=== PATIENT | female | born 1955 | race Caucasian/White ===

== ENCOUNTER 2019-08-27 12:21 | Emergency (ER) | payer SELFPAY ==
[2019-08-27 12:28] VITALS: BMI 23.3
[2019-08-27 12:33] VITALS: BP 137/94; PULSE 107; RESP 20; TEMP 36.8; O2SAT 95
[2019-08-27] MEDS: predniSONE 20 mg Tablet 60 MG PO (12:38)
[2019-08-27] MEDS: diphenhydrAMINE 50 mg Capsule PO (12:39)
--- NOTE | 2019-08-27 12:41 | ED_ITS ---
HPI - Skin/Abscess/Foreign Bdy General: Chief complaint: Skin/Abscess/Foreign Body Stated complaint: spider bite Time Seen by Provider: 08/27/19 12:27 History of Present Illness: HPI narrative: This patient is a 64-year-old female who presents today with a rash. She was bitten by something on her right arm yesterday while sitting on her couch in her home. She believes it was a spider but she did not see what ever it was that bit her. Since then she has d eveloped a diffuse, erythematous rash on her arms and legs. She feels intermittently short of breath. She does have a history of COPD and is a heavy smoker. She does not have a primary care provider, takes no prescription medications. Her daughter gave her 2 Benadryl early this morning and she felt it helped a little bit. She is complaining of severe itching. MD complaint: insect bite/sting Onset (ago): hour(s) (18) Tetanus up to date: unsure Location: generalized Quality: pruritic Associated symptoms: Reports itching and short of breath; Deny chills, fever(s), nausea or vomiting Review of Systems General: Reports: 10 or more systems reviewed and unremarkable except in HPI and below Const: Denies: fever(s), chills, fatigue or malaise Eyes: Denies: change in vision ENMT: Denies: odynophagia Card: Denies: chest pain or swelling of feet/ankles Resp: Denies: productive cough or non-productive cough GI: Denies: abdominal pain, nausea or vomiting : Denies: flank pain or difficulty voiding Musc: Denies: neck pain or back pain Neuro: Denies: headache(s), numbness in extremities or weakness in extremities Lyle/Lymph: Denies: easy bruising or easy bleeding PFSH ED PFSH: Social History Smoking and tobacco status: current every day smoker Physical Exam Const: COMMON NORMALS: no acute distress, patient oriented x3, no limitations and alert GENERAL APPEARANCE: cooperative and comfortable HENMT: HEAD & SCALP: normal to inspection FACE & SINUS: normal facial exam Eye: GENERAL EYE: appearance normal, both eyes and all related structures Neck/C-Spine: COMMON NORMALS: supple, no meningeal signs and no JVD Chest: COMMONS NORMALS: normal inspection of the chest Resp: COMMON NORMALS: normal respiratory effort and No use of accessory muscles EFFORT & INSPECTION: Yes tachypneic and Yes audible wheezes Cardio: COMMON NORMALS: no JVD, regular rate, regular rhythm and No murmurs present (Cardio) RATE: regular rate RHYTHM: regular rhythm GI: COMMON NORMALS: Normal to inspection, nondistended, normoactive bowel sounds present, Soft to palpation and non-tender INSPECTION: Yes normal to inspection AUSCULTATION: Yes normoactive bowel sounds PALPATION: Yes Soft to palpation Back/Pelvis: COMMON NORMALS: thoracic and lumbar spine normal to inspection Extremity: COMMON NORMALS: normal to inspection Neuro: COMMON NORMALS: patient oriented x3, moves all extremities, no focal motor deficits and no sensory deficits noted SENSORIUM/ORIENTATION: Yes alert MENINGEAL SIGNS: Yes no meningeal signs Psych: COMMON NORMALS: mental status grossly normal, cooperative and normal affect Skin: COMMON NORMALS: turgor normal NARRATIVE SKIN EXAM: Diffuse and splotchy redness over the arms and legs mainly. SKIN IMAGES (FEMALE): 1. Erythema and induration with a central lesion that could be a insect bite GENERAL SKIN EXAM: turgor normal Course ED course: Patient improved after treatment. Her breathing was back to normal. I will send her home with prednisone, Benadryl, famotidine. She was also referred to primary care and encouraged to follow-up. Vital Signs: Vital signs: Vital Signs Temperature 98.3 F 08/27/19 12:33 Pulse Rate 93 08/27/19 13:51 Respiratory Rate 18 08/27/19 13:51 Blood Pressure 143/95 08/27/19 13:51 Pulse Oximetry 96 08/27/19 13:51 Discharge Plan Discharge Patient Disposition: Home, Self-Care Clinical Impression: Allergic reaction to insect bite Condition: Stable Prescriptions: New prednisone 20 mg tablet 40 mg PO DAILY Qty: 10 RF: 0 Benadryl 25 mg capsule 50 mg PO Q8H PRN (Reason: allergy symptoms) Qty: 20 RF: 0 famotidine 40 mg tablet 40 mg PO DAILY Qty: 7 RF: 0 Discharge Orders: Discharge Order (Routine); Ordered 08/27/19 Ordered By: Belinda Montero Discharge Diet: Advance as tolerated Discharge Activity: Resume usual activity Patient Instructions: Allergic Reaction Activity Restrictions/Additional Instructions: Take the prednisone, Benadryl, famotidine as directed for 3 to 4 days. If symptoms are gone after that you may stop them. Establish care with a primary care provider for your future healthcare needs. Discharge Date/Time: 08/27/19 13:51 Coding Level of Care Code ED Shield Operator for Claudine Fwaparna Exam Comprehensive
[2019-08-27 13:25] VITALS: RESP 18
[2019-08-27 13:51] VITALS: BP 143/95; PULSE 93; RESP 18; O2SAT 96
--- NOTE | 2019-08-28 14:11 | DCPLANNER ---
Addendum entered by Stella Rodriguez 11/28/19 08:17: Patients appointment was rescheduled to a later date. Original Note: data warehousing manager was asked to speak with patient about getting established with a primary care physician. data warehousing manager spoke with patient, she stated that she did need to get established with a provider. data warehousing manager called the office of Dr. Cuellar, spoke with Kanika, follow up appointment is scheduled for September 26, 11:[address] Cuellar. data warehousing manager will mail patient both of the financial sales advisor applications to the patient to fill out and turn back in. data warehousing manager also mailed patient the appointment information.
== END 2019-08-27 13:51 | disposition home or self-care (01) ==
PROVIDERS: Emergency Provider Emergency Medicine
DX: T63.481A Toxic effect of venom of other arthropod, accidental (unintentional), initial encounter (principal); F17.210 Nicotine dependence, cigarettes, uncomplicated
CPT/HCPCS: 12345; 99281; 99283; J3535; J7512; Q0163

== ENCOUNTER 2020-10-03 20:21 | Emergency (ER) | payer MEDICARE, SELFPAY ==
[2020-10-03 20:47] VITALS: BP 211/126; PULSE 114; RESP 22; TEMP 35.9; O2SAT 96; BMI 24.1
--- NOTE | 2020-10-03 21:27 | ED_ITS ---
HPI - Back Pain/Injury General: Chief Complaint: Back Pain/Injury Stated Complaint: back pain Time Seen by Provider: 10/03/20 21:25 [facility] PFSH: Social History Smoking and tobacco status: current every day smoker Course Vital Signs: Vital signs: Vital Signs Temperature 96.6 F L 10/03/20 20:47 Pulse Rate 114 H 10/03/20 20:47 Respiratory Rate 22 H 10/03/20 20:47 Blood Pressure 211/126 10/03/20 20:47 Pulse Oximetry 96 10/03/20 20:47 Discharge Plan Discharge Prescriptions: No Action prednisone 20 mg tablet 40 mg PO DAILY Qty: 10 RF: 0 Benadryl 25 mg capsule 50 mg PO Q8H PRN (Reason: allergy symptoms) Qty: 20 RF: 0 famotidine 40 mg tablet 40 mg PO DAILY Qty: 7 RF: 0 Coding Level of Care Code ED General Practice for Claudine Cantu
--- NOTE | 2020-10-03 22:05 | W.ED.BACK ---
HPI - Back Pain/Injury General: Chief Complaint: Back Pain/Injury Stated Complaint: back pain Time Seen by Provider: 10/03/20 21:25 History of Present Illness: HPI Narrative: 65-year-old female comes in today with low back pain. Patient reports she had bent down to lift something up to help get her beagle assistance when it was barking. Patient reports she was in a prolonged position and aggravated her chronic back pain. Patient does have a history of vertebral fractures about 9 years ago when she fell lifting a heavy object. Patient denies any bowel or bladder problems. Patient denies any fever. Patient appears well. Patient appears in mild to moderate pain. Review of Systems General: Reports: 10 or more systems reviewed and unremarkable except in HPI and below Musc: Reports: back pain PFSH ED PFSH: Social History Smoking and tobacco status: current every day smoker Physical Exam Const: COMMON NORMALS: no acute distress and patient oriented x3 GENERAL APPEARANCE: cooperative HENMT: COMMON NORMALS: normocephalic and Normal external nose present HEAD & SCALP: normal to inspection and normocephalic NOSE: Normal external nose present MOUTH: Normal oral and palatal mucosa present Eye: GENERAL EYE: appearance normal, both eyes and all related structures Neck/C-Spine: COMMON NORMALS: full ROM Chest: COMMONS NORMALS: normal inspection of the chest Resp: COMMON NORMALS: normal respiratory effort EFFORT & INSPECTION: Yes able to speak in complete sentences Cardio: COMMON NORMALS: regular rate and regular rhythm RATE: regular rate RHYTHM: regular rhythm GI: COMMON NORMALS: non-tender : COMMON NORMALS: Yes no CVA tenderness BLADDER/KIDNEY EXAM: Yes no CVA tenderness Back/Pelvis: COMMON NORMALS: no CVA tenderness THORACIC SPINE/UPPER BACK: Yes paraspinal muscle spasm Extremity: COMMON NORMALS: normal to inspection Neuro: COMMON NORMALS: patient oriented x3 and moves all extremities Psych: COMMON NORMALS: mental status grossly normal and cooperative Skin: COMMON NORMALS: no rashes or lesions noted GENERAL SKIN EXAM: no rashes or lesions noted Course Vital Signs: Vital signs: Vital Signs Temperature 96.6 F L 10/03/20 20:47 Pulse Rate 114 H 10/03/20 20:47 Respiratory Rate 22 H 10/03/20 20:47 Blood Pressure 211/126 10/03/20 20:47 Pulse Oximetry 96 10/03/20 20:47 MDM - Back Pain/Injury MDM Narrative: Medical decision making narrative: 65-year-old female comes in today with exacerbation of chronic back pain. On exam patient has tenderness in the thoracic region of her mid back. Patient is able to maneuver with minimal difficulty. Respirations are even lungs are diminished in the bases. Vital signs are significant for elevated blood pressure 211/126. Differential diagnosis includes muscle strain, acute on chronic back pain, intervertebral disc disease, facet arthropathy. Patient denies any falls or recent injuries. Reviewed exam with patient with recommendations for treatment for pain and follow-up with primary care as needed. Patient reported understanding and agreed to plan. Discharge Plan Discharge Patient Disposition: Home Clinical Impression: Strain of lumbar region Qualifiers: Encounter type: initial encounter Qualified Code(s): S39.012A - Strain of muscle, fascia and tendon of lower back, initial encounter Condition: Stable Prescriptions: New naproxen 500 mg tablet 500 mg PO BID Qty: 20 RF: 0 hydrocodone-acetaminophen 5-325 mg tablet 1 tab PO Q8H PRN (Reason: pain (scale score 7-10)) Qty: 7 RF: 0 No Action prednisone 20 mg tablet 40 mg PO DAILY Qty: 10 RF: 0 Benadryl 25 mg capsule 50 mg PO Q8H PRN (Reason: allergy symptoms) Qty: 20 RF: 0 famotidine 40 mg tablet 40 mg PO DAILY Qty: 7 RF: 0 Discharge Orders: Discharge ED (Routine); Ordered 10/03/20 Ordered By: Curtis Serrano Referrals: Kady Cuellar DO [Primary Care Provider] - Discharge Diet: Usual diet Discharge Activity: Increase activity as tolerated Patient Instructions: Back Pain (ED), Opioid Safety Activity Restrictions/Additional Instructions: Back pain as tolerated. Use Tylenol for further pain relief and control. Take naproxen twice a day routinely for pain and inflammation. Use hydrocodone for breakthrough pain. Drink plenty of water with medication. Follow-up with primary care for further instruction. Coding Level of Care Code ED Development Mechanic for Claudine Cantu
[2020-10-03] MEDS: ketorolac 30 mg/mL INJ IM (22:35)
[2020-10-03] MEDS: HYDROcodone-acetaminophen 5-325 mg Tablet 1 TAB PO (22:35)
== END 2020-10-03 22:53 | disposition home or self-care (01) ==
PROVIDERS: Emergency Provider Nurse Practitioner Family
DX: S39.012A Strain of muscle, fascia and tendon of lower back, initial encounter (principal); F17.210 Nicotine dependence, cigarettes, uncomplicated; X50.1XXA Overexertion from prolonged static or awkward postures, initial encounter
CPT/HCPCS: 96372; 99283; J1885

== ENCOUNTER 2025-01-30 15:35 | Emergency (ER) | payer MEDICARE, SELFPAY ==
[2025-01-30] VITALS (15 sets, daily range): BP systolic 135–206; BP diastolic 80–153; PULSE 83–110; RESP 15–20; TEMP 37.1; O2SAT 87–96; BMI 25.0
--- NOTE | 2025-01-30 15:39 | ECG_ITS ---
[facility]: 2025-[facility]30 Pat Name: Nirmala Castillo Department: Room: Gender: Female Team Manager: : 1955 Requested By: Gray Zuniga Order Number: [id number] Leonidas MD: Gnozalo Warren M.D. Measurements Intervals [place] Rate: 108 P: 51 PA: 163 QRS: -5 QRSD: 82 T: 44 QT: 324 QTc: 435 Interpretive Statements SINUS TACHYCARDIA POSSIBLE LEFT ATRIAL ENLARGEMENT [-0.1mV P-WAVE IN V1/V2] SEPTAL MYOCARDIAL INFARCTION , OF INDETERMINATE AGE [40+ ms Q WAVE IN V1/V2] No previous ECG available for comparison Electronically Signed On 01-30-2025 18:56:16 CEILING INSULATION BLOWER by Gonzalo Warren M.D. [email or web address] [id number]
--- NOTE | 2025-01-30 15:45 | XR_ITS ---
WS: [id number] Exam: XR chest 1V portable [id number] Date/Time of Exam: 01/30/2025 3:45 PM Reason For Exam: chest pain Comparison 02/23/2018. The lungs are fully expanded and clear. Plaque atelectasis in the LEFT lower lobe. Cardiomediastinal structures are unremarkable. Bony structures are intact. XR/XR chest 1V portable [id number] IMPRESSION: 1. Plaque atelectasis in the LEFT lower lobe. No acute cardiopulmonary finding.
[2025-01-30 16:22] LABS: Hematocrit 45.2 % (36-47); Hemoglobin 14.30 g/dL (11.27-16.99); Mean Corpuscular HGB Conc 31.6 g/dL (30-55); Mean Corpuscular Hemoglobin 25.1 pg (27-33); Mean Corpuscular Volume 79.4 fl (85-98); Nucleated Red Blood Cells % 0 %; Platelet Count 334 10^3/cmm (157-399); Red Blood Count 5.69 10^6/uL (3.85-5.65); White Blood Count 12.71 10^3/uL (3.29-11.43)
[2025-01-30 16:45] LABS: Troponin(5th) Baseline 14 ng/L (0-10)
[2025-01-30 16:47] LABS: Alanine Aminotransferase 10 U/L (0-33); Albumin Level 4.3 g/dL (3.5-5.2); Alkaline Phosphatase 99 U/L (35-105); Anion Gap 15.6 (5-19); Aspartate Amino Transferase 10 U/L (0-32); Blood Urea Nitrogen 23 mg/dL (8-23); Calcium 9.3 mg/dL (8.5-10.5); Carbon Dioxide 27 mmol/L (22-29); Chloride 104 mmol/L (98-107); Globulin 2.3 g/dL (1.3-4.6); Glucose 87 mg/dL (65-115); Osmolality Calculated 297 mOsm/kg (285-295); Potassium 4.6 mmol/L (3.5-5.1); Sodium 142 mmol/L (136-145); Total Protein 6.6 g/dL (6.6-8.7)
--- OUTSIDE RECORDS SUMMARY | 2025-01-30 17:07 | XMS_ITS | Clinical Summary ---
Author Organization [facility] Address [address] [place] [address] Phone Care Team Providers Care Concrete Worker Name Role Phone Unavailable Primary Care Provider Unavailabl e Social History Tobacco Use Types Packs/Day Years Used Date Smoking Tobacco: Never Assessed Comments Unknown Sex and Gender Information Value Date Recorded Sex Assigned at Not on file Legal Sex Female 10:22 PM CDT Gender Identity Not on file Sexual Orientation Not on file Plan of Treatment Health Maintenance Due Date Last Done Comments DTAP/TDAP/TD VACCINES (1 - Tdap) 08/02/1974 BREAST CANCER SCREENING 1995 COLORECTAL SCREENING 08/02/2000 Colorectal Cancer Screening 08/02/2000 FIT-DNA Q 3 years 08/02/2000 FIT/FOBT Q 1 year 08/02/2000 Flex Sig/CT Colonography Q 5 years 08/02/2000 PNEUMOCOCCAL VACCINE 50+ YEARS (1 of 1 - PCV) 08/03/19 06 ZOSTER VACCINE (1 of 2) 08/02/2005 OSTEOPOROSIS SCREENING 08/02/2020 INFLUENZA VACCINE (#1) 2024 RSV VACCINE (60+ or ) (1 - 1-dose 75+ series) 08/02/2030
--- OUTSIDE RECORDS SUMMARY | 2025-01-30 17:07 | XMS_ITS | Data Portability ---
Author Organization [facility]ian [facility] Address [address] [address] Care Team Providers Care Medical Accountant Name Role Phone CHE LOBATO Primary Care Provider Unavailabl e Assessment No assessment recorded. Plan of Treatment Reminders Order Date Submit Date Provider Last Modified By Organization Details Last Modified Time Details Appointments None recorded. Lab CMP, serum or plasma 2024 025 [facility], [address], [address], 5 17:24:46 CBC w/ auto diff 2024 025 anahi [facility], [address], [address], 5 13:59:15 vitamin D, 25-hydrox y, total, serum 2024 025 [employer] [facility], [address] [facility] [address] [place], [address], 5 08:49:06 Referral orthopedi c spine surgeon referral 2024 025 stjerome Vazquez DO, [address] [place], [address], 5 10:00:20 Procedures None recorded. Surgeries None recorded. Imaging MRI, lumbar spine, w/o contrast 2024 025 [email or web address] [facility] Imaging Orders, [address] [facility], [place], [address], 5 10:25:37 XR, lumbosacr al spine, 2 or 3 view 2023 024 [facility] ([facility]), [address] [facility], [place], [address], 4 12:44:23 Medication Orders betametha sone acetate and sodium phos 6 mg/mL suspensio n for injection 2024 025 [email or web address] Not available 18:38:57 levetirac etam 500 mg tablet 2024 025 [facility] 15, [address], [place], [address], 17:59:51 lisinopri l 20 mg tablet 2024 025 [facility] 15, [address], [place], [address], 5 17:59:53 alendrona te 70 mg tablet 2024 025 [facility] 15, [address], [place], [address], 5 15:32:26 Cymbalta 30 mg capsule,d elayed release 2024 025 [facility] 15, [address], [place], [address], 5 15:32:28 Cymbalta 60 mg capsule,d elayed release 2024 025 [facility] 15, [address], [place], [address], 15:32:29 tramadol 50 mg tablet 2024 025 [facility] 15, [address], [place], [address], 15:32:35 tramadol 50 mg tablet 2023 024 [facility] 15, [address], [place], [address], 14:01:47 Patient TargetsNo targets recorded. Patient InstructionsNo instructions recorded. Reason for Referral Orthopedic Spine Surgeon Ref erral for Compression fracture of lumbar spine Referring Physician: Che Lobato, Family Medicine, Encounter Date: 05/09/2024 Results Created Date Observation Date Name Description Value Unit Range Abnormal Flag Note LastModifiedBy Organization Detail LastModifiedTime 05/10/1905/09/2024 CBC WBC 16.0 x10 4.0-10 .5 high Not Available [facility] [address] [facility] [address], [place], [address], 05/09/2024 16:22:59 05/10/19 25 05/09/2024 CBC RBC 5.16 x10 3.50-5 .50 Not Available [facility] [address] [facility] [address], [place], [address], 05/09/2024 16:22:59 05/10/19 25 05/09/2024 CBC HGB 14.1 g/dL 12.0-1 6.0 Not Available [facility] [address] [facility] [address], [place], [address], 05/09/2024 16:22:59 05/10/19 25 05/09/2024 CBC HCT 40.5 % 37.0-4 7.0 Not Available [facility] [address] [facility] [address], [place], [address], 05/09/2024 16:22:59 05/10/19 25 05/09/2024 CBC MCV 78.4 fL 80.0-9 9.9 low Not Available [facility] [address] [facility], [place], [address], 05/09/2024 16:22:59 05/10/19 25 05/09/2024 CBC MCH 27.3 pg 27.0-3 2.0 Not Available [facility] [address] [facility], [place], [address], 05/09/2024 16:22:59 05/10/19 25 05/09/2024 CBC MCHC 34.8 g/dL 32.0-3 6.0 Not Available [facility] [address] [address], [place], [address], 05/09/2024 16:22:59 05/10/19 25 05/09/2024 CBC RDW 17.2 % 11.5-1 4.5 high Not Available [facility] [address] [facility], [place], [address], 05/09/2024 16:22:59 05/10/19 25 05/09/2024 CBC plt 311.4 x10 140.0- 451.0 Not Available [facility] [address] [facility], [place], [address], 05/09/2024 16:22:59 05/10/19 25 05/09/2024 CBC lymphocytes % 15.2 % 20.0-5 0.0 low Not Available [facility] [address] [facility], [place], [address], 05/09/2024 16:22:59 05/10/19 25 05/09/2024 CBC granulcytes % 76.3 % 30.0-7 0.0 high Not Available [facility] [address] [facility], [place], [address], 05/09/2024 16:22:59 05/10/19 25 05/09/2024 CBC monocytes % 7.0 % 2.0-16 .0 Not Available [facility] [address] [address], [place], [address], 05/09/2024 16:22:59 05/10/19 25 05/09/2024 CBC granulcytes# 12.2 x10 Not Leslye ilable [facility] [address] [address], [place], [address], 05/09/2024 16:22:59 05/10/19 25 05/09/2024 CBC lymphocytes # 2.4 x10 Not Available [facility] [address] [address], [place], [address], 05/09/2024 16:22:59 05/10/19 25 05/09/2024 CBC monocytes # 1.1 x10 Not Avai lable [facility] [address] [address], [place], [address], 05/09/2024 16:22:59 05/10/19 25 05/09/2024 CMP (FEMA LE) glucose 97.0 mg/dL 60.0-9 9.0 Not Available [facility] [address] [address], [place], [address], 05/09/2024 17:24:46 05/10/19 25 05/09/2024 CMP (FEMA LE) BUN (blood urea nitrogen) 17.0 mg/dL 10.0-2 6.0 Not Available [facility] [address] [address], [place], [address], 05/09/2024 17:24:46 05/10/19 25 05/09/2024 CMP (FEMA LE) creatinine (serum) 0.8 mg/dL 0.4-1. 5 Not Available [facility] [address] [facility], [place], [address], 05/09/2024 17:24:46 05/10/19 25 05/09/2024 CMP (FEMA LE) BUN/creatini ne ratio 21.25 ratio Not Available [facility] [address] [facility] 1, [place], [address], 05/09/2024 17:24:46 05/10/19 25 05/09/2024 CMP (FEMA LE) eGFR calculated 75.8 Not Available [facility] [address] [facility] 1, [place], [address], 05/09/2024 17:24:46 05/10/19 25 05/09/2024 CMP (FEMA LE) total protein 7.7 g/dL 6.0-8. 5 Not Available [facility] [address] [facility] 1, [place], [address], 05/09/2024 17:24:46 05/10/19 25 05/09/2024 CMP (FEMA LE) total bilirubin 0.8 mg/dL 0.2-1. 3 Not Available [facility] [address] [facility] 1, [place], [address], 05/09/2024 17:24:46 05/10/19 25 05/09/2024 CMP (FEMA LE) albumin 4.6 g/dL 3.5-5. 5 Not Available [facility] [address] [facility] 1, [place], [address], 05/09/2024 17:24:46 05/10/19 25 05/09/2024 CMP (FEMA LE) globulin 3.1 calc Not Available [facility] [address] [facility] [address], [place], [address], 05/09/2024 17:24:46 05/10/19 25 05/09/2024 CMP (FEMA LE) AST (SGOT) 16.0 U/L 0.0-46 .0 Not Available [facility] [address] [facility] [address], [place], [address], 05/09/2024 17:24:46 05/10/19 25 05/09/2024 CMP (FEMA LE) altv (SGPT) 12.0 U/L 13.0-6 9.0 abnormal Not Available [facility] [address] [facility] [address], [place], [address], 05/09/2024 17:24:46 05/10/19 25 05/09/2024 CMP (FEMA LE) A/G ratio 1.5 ratio Not Available [facility] [address] [facility] [address], [place], [address], 05/09/2024 17:24:46 05/10/19 25 05/09/2024 CMP (FEMA LE) ALP phos 95.0 U/L 30.0-1 40.0 normal Not Available [facility] [address] [facility] [address], [place], [address], 05/09/2024 17:24:46 05/10/19 25 05/09/2024 CMP (FEMA LE) calcium 9.5 mg/dL 8.4-10 .5 Not Available [facility] [address] [facility] [address], [place], [address], 05/09/2024 17:24:46 05/10/19 25 05/09/2024 CMP (FEMA LE) sodium 140.0 mmol/ L 136.0- 145.0 Not Available [facility] [address] [facility] 1, [place], [address], 05/09/2024 17:24:46 05/10/19 25 05/09/2024 CMP (FEMA LE) potassium 3.5 mmol/ L 3.5-5. 1 Not Available [facility] [address] [facility] [address], [place], [address], 05/09/2024 17:24:46 05/10/19 25 05/09/2024 CMP (FEMA LE) chloride 102.0 mmol/ L 98.0-1 10.0 normal Not Available [facility] [address] [facility] [address], [place], [address], 05/09/2024 17:24:46 05/10/19 25 05/09/2024 CMP (FEMA LE) C02 30.0 mmol/ L 22.0-3 1.0 Not Available [facility] [address] [facility] 1, [place], [address], 05/09/2024 17:24:46 05/10/19 25 05/09/2024 CMP (FEMA LE) anion gap 8.0 calc Not Available [facility] [address] [facility] 1, [place], [address], 05/09/2024 17:24:46 05/10/19 25 05/09/2024 CMP (FEMA LE) osmolality 290.5 calc Not Available [facility] [address] [address], [place], [address], 05/09/2024 17:24:46 05/10/19 25 05/10/2024 VITAM IN D,25- OH,TO WALESKA,I A vitamin D,25-oh,tota l,ia 14 NG/mL 30-100 low Vitam in D Statu s 25-OH Vitam in D: Defic iency : <20 ng/mL Insuf ficie ncy: 20 - 29 ng/mL Optim al: > or = 30 ng/mL For 25-OH Vitam in D testi ng on patie nts on D2-taylor pplem entat ion and patie nts for whom quant itati on of D2 and D3 fract ions is requi red, the [employer] Assur eD(TM ) 25-OH VIT D, (D2,D 3), LC/MS /MS is recom sacha d: order code 14254 (sirena ents >2yrs ). See Note 1 Note 1 For addit ional infor divina smith refer to http: //[facility] carli perez.Carson stDia gnost ics.c om/fa q/FAQ 199 (This link is being provi ded for infor malgorzata hastings/ educann dias purpo ses only. ) Not Available [facility] [address] [place], [address], 05/10/2024 08:49:06 05/28/19 24 05/27/2023 XR, lumbo sacra l spine , 2 or 3 view No observ ation record ed. dcrase [facility] [address] [place], [address], 05/30/2023 08:57:33 Result Notes None recorded. Problems Name Problem SNOMED Code Status Onset Date Resolution Date Notes Provider Name and Address Organization Details Recorded Time Low back pain 520866296 Active 2023 ANAHI gonzalez [facility] 5 15:02:12 Recurrent falls 552987069 Active 2023 ANAHI gonzalez [facility]L.C[facility]ity 5 15:02:12 Elevated blood-press ure reading without diagnosis of hypertensio n 682299305 Active 2023 ANAHI gonzalez [facility], L.LChastityCChastity 5 15:02:12 Compression fracture of lumbar spine 119270101 Active 2024 MARILU AMBRIZ, [facility] [address] [place], [address], [facility] 16:39:48 Osteoporosi s 56540932 Active 2024 [address] [address], [facility] 16:39:57 Depressive disorder 53146720 Active 2024 MARILU PB [place] [address] 5, [facility] 16:39:57 Essential hypertensio n 55242279 Active 2024 Che Lobato MD [address] [place] [address] 5, [facility], Nadia.L.CChastity 17:48:04 Cerebrovasc ular accident 126822861 Active 2024 Che Lobato MD [address] [place] [address], [address] [place] [address] 5, [facility], L.L.CChastity 17:48:11 Seizure disorder 756147764 Active 2024 Che Lobato MD [address] [place] [address], [address] [place] [address] 5, [facility] 17:48:43 Bursitis of right shoulder 9625070046557 07 Active 2024 Che Lobato MD [address] [place] [address] 5, [facility], L.L.CChastity 17:50:01 Acute cough Active 2024 Che Lobato MD [address] [place] [address] 5, [facility] 15:46:20 Problem Notes None recorded. Procedures Surgical History Date Name Laterality Status Provider Name and Address Organization Details Recorded Time 06/12/2024 Joint Inj Beta-should er, hip, knee completed Che Lobato MD [address] [place], [address], [facility], [place] 06/12/2024 17:52:57 Imaging Results None recorded. Procedure Notes None recorded. Medical Equipment None Reported. Allergies No known drug allergies Medications Name Sig Start Date Stop Date Status Note LastModified by Organization Details LastModified Time atorvasta tin 40 mg tablet TAKE 1 TABLET BY MOUTH AT BEDTIME active Not Available Not Available No t Available paroxetin e 10 mg tablet daily 05/26 completed Recorded 04/20/19 23 1:58PM by Che Lobato MD, Office Visit; Refill Quantity : 30; Tablet; Not Available Not Available Not Available levetirac etam 500 mg tablet TAKE 1 TABLET BY MOUTH TWICE DAILY active Not Available Not Available No t Available hydrocodo ne 5 mg-acetam inophen 325 mg tablet TAKE 1 TO 2 TABLETS BY MOUTH EVERY 6 HOURS NEEDED FOR PAIN . DO NOT EXCEED 8 PER 24 HOURS active Not Available Not Available No t Available lisinopri l 20 mg tablet TAKE 1 & 1/2 (ONE & ONE-HALF ) TABLETS BY MOUTH ONCE DAILY active Not Available Not Available No t Available alendrona te 70 mg tablet TAKE 1 TABLET BY MOUTH ONCE A WEEK active Not Available Not Available No t Available tramadol 50 mg tablet TAKE 2 TABLETS BY MOUTH EVERY 6 HOURS NEEDED active Not Available Not Available No t Available betametha sone acetate and sodium phos 6 mg/mL suspensio n for injection Take 6 mg every day by injectio n route for 1 day. 2024 active Not Available Not Available Not Avai lable benzonata te 100 mg capsule TAKE 1 CAPSULE BY MOUTH THREE TIMES DAILY NEEDED active Not Available Not Available No t Available ropinirol e 0.5 mg tablet at bedtime 06/12 completed Recorded 04/20/19 23 1:58PM by Che Lobato MD, Office Visit; Refill Quantity : 60; Tablet; Not Available Not Available Not Available lisinopri l 10 mg tablet TAKE 1 TABLET BY MOUTH ONCE DAILY 06/12 completed Not Available Not Available Not Available duloxetin e 30 mg capsule,d elayed release TAKE 1 CAPSULE BY MOUTH ONCE DAILY FOR 7 DAYS active Not Available Not Available No t Available duloxetin e 60 mg capsule,d elayed release TAKE 1 CAPSULE BY MOUTH ONCE DAILY active Not Available Not Available No t Available Vitals Date Recorded Body height Body mass index (BMI) Body weight Heart rate Systolic And Diastolic Provider Name and Address Organization Details Last Updated DateTime 05/09/2024 162.56 cm 24.9 kg/m2 36749.89 g 106 /min 162/80 mm[Hg] ANAHI [facility] 5 14:54:07 Date Recorded Body height Body mass index (BMI) Body weight Oxygen saturation Heart rate Respiratory rate Body temperature Systolic And Diastolic Provider Name and Address Organization Details Last Updated DateTime 4 162.56 cm 27.7 kg/m2 22848.0 9 g 95 % 108 /min 18 /min 97.3 [degF] 174/116 mm[Hg] Ondina King [facility] 4 13:02:22 Date Recorded Body height Body mass index (BMI) Body weight Heart rate Systolic And Diastolic Provider Name and Address Organization Details Last Updated DateTime 06/12/2024 162.56 cm 24.9 kg/m2 50339.89 g 124 /min 139/90 mm[Hg] [facility] 5 17:21:51 Social History None recorded. Functional Status Question Answer Note LastModified by Organization D etails LastModified Time What is your level of alcohol consumption? None [email or web address] Information not available 05/09/2024 Mental Status None recorded. Family History Relationship Description Onset Age of this Age Resolved Age Notes LastModified by Organization Details LastModified Time Father Malignant neoplastic disease [email or web address] Not available 05/09 14:55:55 Medical History No medical history recorded. Gynecological HistoryNo gynecological history recorded. Obstetrics History GPAL:G 0 P 0 0 0 0 Past Encounters Encounter ID Performer Location Encounter Start Date Encounter Closed Date Diagnosis/Indication Diagnosis SNOMED-CT Code Diagnosis ICD10 Code Diagnosis IMO Codes Diagnosis Note [id number] Dakotah Fontaine MD [facility] ([facility]) [address] [place] [address] 05/27/2023 12:52:28 05/27/2023 14:30:18 Low back pain 113764717 M54.50 Trays of the back were obtained. The patient does have several wedge fractures of unknown age noted within the entire spine at multiple levels. Patient does state that she has had history of fracture to her back in the past and we had no comparison films to identify possible new fractures. Recurrent falls 08798221 2 R29.6 Compressio n fracture of vertebral column 28738234 M48.50XA Given the patient's presentati on and recent falls there are concerns that she may have a new compressio n fracture. Will treat her pain and have her follow-up with her PCP next week. Elevated blood-pressure reading without diagnosis of hypertension 172775327 R03.0 Patient was encouraged to monitor blood pressure and keep a log of those readings to discuss with PCP at follow-up appointmen t next week. [id number] Che Lobato MD [facility] ([facility]) [address] [place] [id number] 05/09/2024 14:33:31 05/10/2024 11:33:29 Low back pain 403925103 M54.50 Compressio n fracture of lumbar spine 010531719 M48.56XD multiple compressio n fractures of the lumbar and low thoracic spine. Osteoporosis 45355463 M8 1.0 Depressive disorder 3548 9007 F32.A [id number] Che Lobato MD [facility] ([facility]) [address] [place] [phone] 06/12/2024 16:46:17 06/13/2024 08:19:28 Essential hypertension 60742686 I10 Cerebrovas cular accident 921552437 I63.9 Seizure disorder 8038248 02 G40.909 Bursitis o f right shoulder 5329885607 [address]8715 M75.51 Health Concerns Section Related Observation LastModified by Organization Detai ls LastModified Time None Recorded Concern Status LastModified by Organization Details LastModified Time None Recorded Advance Directives Directive None Recorded Payers Insurance Date Sequence Insurance Name Policy Number Policy Javier Covered Member ID Javier Member ID Guarantor Name 06/12/2024 1 [employer] (MEDICARE REPLACEMENT/A DVANTAGE - PPO) Nirmala Castillo [id number] Nirmala Castillo 06/12/2024 2 [place] Nirmala Castillo [id number] Nirmala Castillo 07/11/2024 1 [place] - [place]) [id number] Nirmala Castillo [id number] Nirmala Castillo Notes Date Note Type Note Provider Name and Address Organization Details Recorded Time 4 text/html Back PainReported by PatientHPIFor severity, patient reportsworsening,pain level 8-9/10,interferes with sleep, andinterferes with work. For associated symptoms, patient reportsweakness,shortness of breath, andgait instabilitybut reportsno fever. For location, patient reportsthoracic midlineandlumbar midline. For quality, patient reportssharp,stiffness,th robbing,tender, andtightness. For duration, patient reports2 weeks. For timing, patient reportsacuteandfirst episode. For context, patient reportstraumaandfall. For alleviating factors, patient reportsnone. For aggravating factors, patient reportsambulationandstand ing.ROS as noted in the HPI Dakotah Fontaine MD [address] [place] [address], [phone], [facility] 05/27/2023 14:28:50 5 text/html Back PainReported by PatientHPIFor location, patient reportsradiation to leg leftbut reportslumbar left. For severity, patient reportsworsening. For quality, patient reportssharp. Che Lobato MD [address] [place] [address], [phone], [facility] 05/09/2024 15:32:21 OBGyn Episode No OBEpisode recorded.
--- OUTSIDE RECORDS SUMMARY | 2025-01-30 17:07 | XMS_ITS | Clinical Summary ---
Author Organization [employer] Address [address] [facility] [address] Jorge: Epic Prelude ADT MANA MENA [address] Care Team Providers Care Lunchroom Worker Name Role Phone Unavailable Primary Care Provider Unavailabl e Allergies No known active allergies Medications rOPINIRole (REQUIP) 0.5 mg tablet Take 0.5 mg by mouth 3 times daily. Active traMADoL (ULTRAM) 50 mg tablet Take 50 mg by mouth every 6 hours as needed for Pain. Active lisinopriL (PRINIVIL) 10 mg tablet Take 1 Tablet (10 mg) by mouth daily. 30 Tablet 04/05/2024 Active HYDROcodone-acet aminophen (NORCO) 5-325 mg tabletIndication s:Compression fracture of thoracic vertebra, unspecified thoracic vertebral level, initial encounter ([facility]) Take 1-2 Tablets by mouth every 6 hours as needed for Pain. Max Daily Amount: 8 Tablets 30 Tablet 05/21/2024 Active Encounters Date Type Department Care Team Description 01/16/2025 External Device Data [facility] ABSTRACTION Provider, Abstract 01/02/2025 External Device Data [facility] ABSTRACTION Provider, Abstract 12/20/2024 External Device Data [facility] ABSTRACTION Provider, Abstract 12/05/2024 External Device Data [facility] ABSTRACTION Provider, Abstract 10/31/2024 External Device Data [facility] ABSTRACTION Provider, Abstract from Last 3 Months Social History Tobacco Use Types Packs/Day Years Used Date Smoking Tobacco: Every Day Cigarettes Smokeless Tobacco: Never Tobacco Cessation:Ready to Q uit: Not Asked; Counseling Given: Not Answered Alcohol Use Standard Drinks/Week Comments Never 0 (1 standard drink = 0.6 oz pur e alcohol) Feeling Safe Answer Date Recorded Are you in a relationship wi th someone who hurts you emotionally and/or physically? No 05/21/2024 Comments No Sex and Gender Information Value Date Recorded Sex Assigned at Not on file Legal Sex Female 7:12 AM [employer] Gender Identity Not on file Sexual Orientation Not on file Last Filed Vital Signs Vital Sign Reading Time Taken Comments Blood Pressure 153/97 05/21/2024 10:00 PM CDT Pulse 104 05/21/2024 10:00 PM CDT Temperature 36.1 C (96.9 F) 05/21/2024 9:02 PM CDT Respiratory Rate 16 05/21/2024 10:00 PM CDT Oxygen Saturation 92% 05/21/2024 10:00 PM CDT Inhaled Oxygen Concentration - - Weight 63.6 kg (140 lb 4.8 oz) 05/21/2024 9:02 P M CDT Height 167.6 cm (5' 6 ) 05/21/2024 9:02 PM CDT Body Mass Index 22.65 05/21/2024 9:02 PM CDT Plan of Treatment Health Maintenance Due Date Last Done Comments DTAP/TDAP/TD VACCINES (1 - Tdap) 08/02/1974 PNEUMOCOCCAL VACCINE 50+ YEARS (1 of 2 - PCV) 08/02/18 75 BREAST CANCER SCREENING 1995 COLORECTAL SCREENING 08/02/2000 Colorectal Cancer Screening 08/02/2000 FIT-DNA Q 3 years 08/02/2000 FIT/FOBT Q 1 year 08/02/2000 Flex Sig/CT Colonography Q 5 years 08/02/2000 ZOSTER VACCINE (1 of 2) 08/02/2005 OSTEOPOROSIS SCREENING 08/02/2020 INFLUENZA VACCINE (#1) 2024 RSV VACCINE (60+ or ) (1 - 1-dose 75+ series) 08/02/[address] [facility] [employer] H[employer]
--- NOTE | 2025-01-30 17:09 | ED_ITS ---
HPI - Chest Pain 2 General: Chief Complaint: Chest Pain Stated Complaint: CP Time Seen by Provider: 01/30/25 17:00 History of Present Illness: 69-year-old female who presents emergenc y room complaining of substernal chest pain for the last 3 days pain has been intermittent. Radiates into her back described as a stabbing like pain. Patient denies any shortness of breath or productive cough. She localizes pain to her mid back at about the T9-10 level to the left of the midline. No recent traumas or falls Associated symptoms: Deny abdominal pain, dyspnea or fever(s) Related Data Previous Rx's ?Medication ?Instructions ?Recorded diphenhydramine HCl 25 mg capsule 50 mg (2 x 25 mg) PO Q8H PRN 08/27/19 (Benadryl) allergy symptoms #20 caps famotidine 40 mg tablet 40 mg PO DAILY #7 tabs 08/26 prednisone 20 mg tablet 40 mg (2 x 20 mg) PO DAILY # 10 tabs 08/27/19 hydrocodone 5 mg-acetaminophen 325 1 tab PO Q8H PRN pa in (scale score 10/03/20 mg tablet 7-10) #7 tabs naproxen 500 mg tablet 500 mg PO BID #20 tabs 10/03 metoprolol succinate 25 mg 25 mg PO DAILY #30 tabs 04/25 tablet,extended release 24 hr (Toprol XL) Allergies Allergy/AdvReac Type Severity Reaction Status Date / Time No Known Allergies Allergy Verified 01/30/25 15:46 Review of Systems 2 Const: Denies: fever(s) or chills Card: Reports: chest pain Resp: Denies: dyspnea GI: Denies: abdominal pain : Denies: dysuria, urinary frequency or urinary urgency Musc: Reports: back pain; Denies: neck pain Skin/Breast: Denies: rash PFSH ED 2 PFSH: Social History Smoking and tobacco/nicotine status: current every day tobacco/nicotine user Physical Exam 2 Const: GENERAL APPEARANCE: cooperative; not combative ORIENTATION/CONSCIOUSNESS: Yes awake, Yes oriented to person, Yes oriented to place and Yes oriented to time HENMT: COMMON NORMALS: normocephalic, atraumatic and hearing grossly normal bilaterally HEAD & SCALP: normocephalic and atraumatic Resp: COMMON NORMALS: normal respiratory effort, No retractions, No use of accessory muscles and clear to auscultation bilaterally AUSCULTATION: clear to auscultation bilaterally Cardio: COMMON NORMALS: regular rate, regular rhythm and No murmurs present (Cardio) RATE: regular rate RHYTHM: regular rhythm GI: COMMON NORMALS: Soft to palpation and No hepatosplenomegaly present A USCULTATION: Yes normoactive bowel sounds PALPATION: Yes Soft to palpation, No Tenderness to palpation present (GI), No Guarding due to palpation present (GI) and Yes No hepatosplenomegaly present Back/Pelvis: OTHER: Reproducible pain along the back on the medial aspect of the left scapula Extremity: COMMON NORMALS: normal to inspection, capillary refill normal, no clubbing, cyanosis or edema, no calf tenderness and no pedal edema Neuro: SENSORIUM/ORIENTATION: Yes oriented to person, Yes oriented to place and Yes oriented to time Skin: COMMON NORMALS: no rashes or lesions noted GENERAL SKIN EXAM: no rashes or lesions noted Course 2 Vital Signs: Vital signs: Vital Signs Temperature 98.8 F 01/30/25 15:35 Pulse Rate 96 01/30/25 21:00 Respiratory Rate 15 01/30/25 18:45 Blood Pressure 142/91 01/30/25 21:00 Pulse Oximetry 92 01/30/25 21:00 Oxygen Delivery Me thod Room Air 01/30/25 20:30 MDM - Chest Pain Medical Decision Making Medical decision making Social determinants: None I reviewed the patient's medical record. I reviewed the patient's current home meds. Alternate historians: None Differential diagnosis: Acute coronary syndrome pneumonia musculoskeletal pain Lab Review: Labs reviewed as found in the chart. White count 12.7 no significant elevation of differential. Platelets 334. Chemistries unremarkable troponins did not show significant significant positive delta. Imaging:Chest x-ray shows some atelectasis but no acute infiltrates no increased vascular markings no cardiomegaly Assessment of risk Level of risk: Moderate Hospitalization considerations: Pending workup for acute coronary syndrome may require hospitalization. Reexamination: Pain continues to be reproducible with palpation along the back particularly on the medial aspect of the scapula on the left. Assessment and plan: Pain reproducible on exam EKG and troponins unremarkable discharge patient home was noted of significant elevation of blood pressure she was started on metoprolol and have her follow-up with her doctor within the next week. Lab Data 01/30/25 16:05 01/30/25 16:05 Radiology Impressions Chest X-Ray 01/30/25 15:45 IMPRESSION: 1. Plaque atelectasis in the LEFT lower lobe. No acute cardiopulmonary finding. Laboratory Results WBC 12.71 10^3/uL (3.29-11.43) H 01/30/25 16:05 RBC 5.69 10^6/uL (3.85-5.65) H 01/30/25 16:05 Hgb 14.30 g/dL (11.27-16.99) 01/30/25 16:05 Hct 45.2 % (36-47) 01/30/25 16:05 MCV 79.4 fl (85-98) L 01/30/25 16:05 MCH 25.1 pg (27-33) L 01/30/25 16:05 MCHC 31.6 g/dL (30-55) 01/30/25 16:05 RDW 16.3 % (12.1-15.1) H 01/30/25 16:05 Plt Count 334 10^3/cmm (157-399) 01/30/25 16:05 MPV 10.1 fL (7.4-10.4) 01/30/25 16:05 Neut % (Auto) 63.0 % 01/30/25 16:05 Lymph % (Auto) 23.8 % 01/30/25 16:05 Ritchie % (Auto) 8.7 % 01/30/25 16:05 Eos % (Auto) 3.9 % 01/30/25 16:05 Baso % (Auto) 0.2 % 01/30/25 16:05 Neut # (Auto) 8.03 10^3/uL (1.8-7.7) H 01/30/25 16:05 Lymph # (Auto) 3.0 10^3/uL (0.8-4.8) 01/30/25 16:05 Ritchie # (Auto) 1.1 10^3/uL (0.2-0.9) H 01/30/25 16:05 Eos # (Auto) 0.5 10^3/uL (0.0-0.8) 01/30/25 16:05 Baso # (Auto) 0.0 10^3/uL (0.0-0.1) 01/30/25 16:05 Nucleated RBC % (auto) 0 % 01/30/25 16:05 Nucleated RBCs # 0.0 /100WBC 01/30/25 16:05 Sodium 142 mmol/L (136-145) 01/30/25 16:05 Potassium 4.6 mmol/L (3.5-5.1) 01/30/25 16:05 Chloride 104 mmol/L (98-107) 01/30/25 16:05 Carbon Dioxide 27 mmol/L (22-29) 01/30/25 16:05 Anion Gap 15.6 (5-19) 01/30/25 16:05 BUN 23 mg/dL (8-23) 01/30/25 16:05 Creatinine 0.8 mg/dL (0.5-0.9) 01/30/25 16:05 GFR Calculation 71.1 mL/min (90-130) L 01/30/25 16:05 Glucose 87 mg/dL (65-115) 01/30/25 16:05 Calculated Osmolality 297 mOsm/kg (285-295) H 01/30/25 16:05 Calcium 9.3 mg/dL (8.5-10.5) 01/30/25 16:05 Total Bilirubin 0.3 mg/dL (0.15-1.2) 01/30/25 16:05 AST 10 U/L (0-32) 01/30/25 16:05 ALT 10 U/L (0-33) 01/30/25 16:05 Alkaline Phosphatase 99 U/L (35-105) 01/30/25 16:05 Troponin T Baseline 14 ng/L (0-10) H 01/30/25 16:05 Troponin T 120 Minute 13.93 ng/L (0-10) H 01/30/25 18:07 Delta Troponin T -0.07 ABS# (0-10) L 01/30/25 18:07 Total Protein 6.6 g/dL (6.6-8.7) 01/30/25 16:05 Albumin 4.3 g/dL (3.5-5.2) 01/30/25 16:05 Globulin 2.3 g/dL (1.3-4.6) 01/30/25 16:05 All radiology interpretation(s) finalized by discharge EKG Data EKG 1: Interpretation: EKG 01/30/2025 1539 sinus tachycardia rate of 108. No acute ST elevation CO interval 163 QTc 435. No previous EKGs for comparison EKG 2: Interpretation: 01/30/2025 1753 sinus rhythm rate of 97 CO interval 171 QTc 439 Q waves in V1 and 2. No acute ST elevation compared to EKG done earlier same day no significant change Discharge Plan Discharge Patient Disposition: Home Clinical Impression: Atypical chest pain Condition: Stable Prescriptions: New metoprolol succinate [Toprol XL] 25 mg tablet extended release 24 hr 25 mg PO DAILY Qty: 30 0RF No Action prednisone 20 mg tablet 40 mg PO DAILY Qty: 10 0RF Benadryl 25 mg capsule 50 mg PO Q8H PRN (Reason: allergy symptoms) Qty: 20 0RF famotidine 40 mg tablet 40 mg PO DAILY Qty: 7 0RF naproxen 500 mg tablet 500 mg PO BID Qty: 20 0RF hydrocodone-acetaminophen 5-325 mg tablet 1 tab PO Q8H PRN (Reason: pain (scale score 7-10)) Qty: 7 0RF Discharge Orders: Discharge ED (Routine); Ordered 01/30/25 Ordered By: Gray Montanez Discharge Diet: Usual diet Discharge Activity: Resume usual activity Patient Instructions: Chest Pain (ED), Opioid Safety, Pain Management, Patient Portal & Reji Instructions Activity Restrictions/Additional Instructions: Thank you for choosing [facility] for your healthcare needs today. It is very important that you follow up as instructed or that you return to the Emergency Department should you have concerns or if your condition changes or worsens in any way. Emergency department visits are focused on emergent conditions, in some cases you may require further evaluation on an outpatient basis. You were seen in the emergency room with complaint of chest discomfort your cardiac enzymes and EKG were normal. Most of your pain was reproducible with palpation along your back. We also noted a markedly elevated blood pressure. It did respond well to medications given. Recommend that you start on Toprol-XL 25 mg once a day and see your primary care doctor within the next week to reevaluate your blood pressure. (Please note that included in your discharge packet is information concerning opioid safety and pain management. 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
--- NOTE | 2025-01-30 17:53 | ECG_ITS ---
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 Measurements Intervals Pearson Rate: 97 P: 56 SC: 171 QRS: -12 QRSD: 84 T: 48 QT: 345 QTc: 439 Interpretive Statements SINUS RHYTHM Possible left atrial enlargement POSSIBLE LEFT ATRIAL ENLARGEMENT [-0.1mV P-WAVE IN V1/V2] SEPTAL MYOCARDIAL INFARCTION , PROBABLY OLD [40+ ms Q WAVE IN V1/V2] Compared to ECG 01/30/2025 15:39:44 Sinus tachycardia no longer present Myocardial infarct finding still present Electronically Signed On 01-30-2025 20:31:12 CUSTOMER RELATIONS REPRESENTATIVE by Gonzalo Warren M.D. [email or web address]
[2025-01-30] MEDS: labetalol 5 mg/mL SDV 20mL 10 MG IVP ×2 (18:04→19:37)
[2025-01-30] MEDS: hyDRALAzine 20 mg/mL INJ 1 mL 10 MG IVP (19:37)
== END 2025-01-30 21:10 | disposition home or self-care (01) ==
PROVIDERS: Emergency Provider Family Medicine
DX: R07.89 Other chest pain (principal); Z72.0 Tobacco use
CPT/HCPCS: 36415; 71045; 80053; 84484; 85025; 93005; 96374; 96375; 99285; J0360; J3490; J9999